=== PATIENT | male | born 1955 | race Caucasian/White ===

== ENCOUNTER → 2016-11-23 | Outpatient (CLI) | payer MEDICARE ==
[~2016-11-23] MED LIST: AMOX-358 PO; ASP81TEC PO; ASPI-587 PO; HYDR-2890 PO; LISI10TA2 PO; LOSA50TA6 PO; METO-272 PO; MTP25TSR PO; MULT-1029 PO; PNT40TEC PO; ROSU20TA14 PO; TRAM50TA2 PO
--- NOTE | 2016-11-23 10:35 | Diagnostic Imaging Report ---
Right shoulder at 10:11 AM. INDICATION: Fell, shoulder pain. There is no fracture, dislocation, or acute bony abnormality evident. There is mild degenerative disease of the glenohumeral joint and moderate degenerative disease of the acromioclavicular joint. The soft tissues are unremarkable. IMPRESSION: 1. There is no evidence for an acute bony abnormality. 2. If there is clinical concern regarding an injury to the rotator cuff or labrum, then MRI would be recommended for additional study. Dictated by: Dictated on workstation # [id number]
== END ==
LOC: RAD 09:46
PROVIDERS: ATTEND Family Medicine
DX: S49.91XA Unspecified injury of right shoulder and upper arm, initial encounter (principal); W19.XXXA Unspecified fall, initial encounter; Y99.8 Other external cause status
CPT/HCPCS: 73030

== ENCOUNTER 2017-11-11 11:02 | Day surgery (SDC) | payer MEDICARE ==
[~2017-11-11] VITALS: Ht 175.3 cm; Wt 100.4 kg
[2017-11-11] VITALS (15 sets, daily range): BP systolic 109–147; BP diastolic 60–89
[2017-11-11] MEDS ORDERED: NITROGLYCERIN 0.4 MG SL TABS BTL 25'S SL PRN ×2 (11:15→14:15)
[2017-11-11] MEDS ORDERED: NITROGLYCERIN 0.4 MG SL TABS BTL 25'S SL ONE (11:15)
[2017-11-11 11:20] LABS: BASOPHILS % (AUTO) 0 % (0-10); EOSINOPHILS # (AUTO) 0.1 10^3/uL (0.0-0.3); EOSINOPHILS % (AUTO) 1 % (0-10); HEMATOCRIT 41 % (40-54); HEMOGLOBIN 14.1 G/DL (13.3-17.7); LYMPHOCYTES # (AUTO) 3.2 X 10^3 (1.0-4.0); LYMPHOCYTES % (AUTO) 39 % (12-44); MEAN CORPUSCULAR HEMOGLOBIN 29 PG (25-34); MEAN CORPUSCULAR HGB CONC 34 G/DL (32-36); MEAN CORPUSCULAR VOLUME 85 FL (80-99); MEAN PLATELET VOLUME 9.5 FL (7.4-10.4); MONOCYTES # (AUTO) 0.6 X 10^3 (0.0-1.0); MONOCYTES % (AUTO) 7 % (0-12); NEUTROPHILS # (AUTO) 4.5 X 10^3 (1.8-7.8); NEUTROPHILS % (AUTO) 54 % (42-75); PLATELET COUNT 295 10^3/uL (130-400); RED BLOOD COUNT 4.85 10^6/uL (4.35-5.85); RED CELL DISTRIBUTION WIDTH 14.6 % (10.0-14.5); WHITE BLOOD COUNT 8.4 10^3/uL (4.3-11.0)
[2017-11-11 11:32] LABS: INR 1.1 (0.8-1.4); PROTHROMBIN TIME PATIENT 13.7 SEC (12.2-14.7)
--- NOTE | 2017-11-11 11:37 | Diagnostic Imaging Report ---
Indication: Chest pain. Frontal chest obtained at 1122 hrs. a.m. Heart and mediastinal silhouette are normal in appearance. The lungs are clear. There is no pneumothorax or pleural fluid. Impression: Negative chest. No change from 05/27/2015. Dictated by: Dictated on workstation # [id number]
[2017-11-11 11:38] LABS: ALANINE AMINOTRANSFERASE 39 U/L (0-55); ALBUMIN 4.5 GM/DL (3.2-4.5); ALKALINE PHOSPHATASE 77 U/L (40-136); BILIRUBIN,TOTAL 0.3 MG/DL (0.1-1.0); BUN/CREATININE RATIO 18; CALCIUM 10.4 MG/DL (8.5-10.1); CARBON DIOXIDE 25 MMOL/L (21-32); CHLORIDE 107 MMOL/L (98-107); CREATININE SERUM 0.92 MG/DL (0.60-1.30); GFR ESTIMATED > 60; GLUCOSE 123 MG/DL (70-105); MAGNESIUM 1.8 MG/DL (1.8-2.4); POTASSIUM 3.9 MMOL/L (3.6-5.0); SODIUM 142 MMOL/L (135-145); TOTAL PROTEIN 7.5 GM/DL (6.4-8.2)
[2017-11-11] MEDS ORDERED: AMLO5TAB2 PO (11:42)
[2017-11-11] MEDS ORDERED: CLOP75TA69 PO (11:42)
[2017-11-11 11:44] LABS: MYOGLOBIN SERUM 100.2 NG/ML (10.0-92.0)
--- NOTE | 2017-11-11 12:48 | ED Chest Pain ---
General Chief Complaint: Chest Pain Stated Complaint: CHEST PAIN Nursing Triage Note: PT CP OF CHEST PAIN Nursing Sepsis Screen: No Definite Risk Source: patient, old records Exam Limitations: no limitations History of Present Illness Date Seen by Provider: Nov 11, 2017 Time Seen by Provider: 11:10 Initial Comments This 62-year-old gentleman with known history of coronary artery disease and stent presents to the emergency room with intermittent chest pain 1 week. He initially thought it was of GI origin and took Tums and Pepto-Bismol. This seemed to work initially but it is no longer effective in treating the pain. Today he notes his pain is worse with activity and better with rest. He describes it as a tightness. He has a history of both pain from GI origin and from cardiac origin. He states this pain feels more like pain from his prior episodes of angina. He reports some dizziness and shortness of air associated with the chest pain today as well. He had a cardiac catheterization at this facility in 2013 demonstrating patent stent and no obstructive disease. His primary media planner is Dr. Yun in [place]. His primary care providers Dr. Givens. He describes his pain as a tightness in the central lower chest radiating to the left chest and left shoulder. Allergies and Home Medications Allergies Coded Allergies: No Known Drug Allergies (Unverified , 08/05/13) Home Medications Amlodipine Besylate 5 Mg Tablet, 5 MG PO DAILY, (Reported) Aspirin 81 Mg Tabec, 325 MG PO DAILY, (Reported) Clopidogrel Bisulfate 75 Mg Tablet, 75 MG PO DAILY, (Reported) Losartan Potassium 50 Mg Tablet, 50 MG PO DAILY, (Reported) Metoprolol Succinate 50 Mg Tab.sr.24h, 50 MG PO DAILY, (Reported) Mu-Vits-Min Th/Lycopene/Lutein 1 Each Tablet, 1 TAB PO DAILY, (Reported) Tramadol Hcl 50 Mg Tablet, 50 MG PO NEEDED, (Reported) Patient Home Medication List Home Medication List Reviewed: Yes Review of Systems Constitutional: no symptoms reported EENTM: No Symptoms Reported Respiratory: See HPI Cardiovascular: See HPI Gastrointestinal: No Symptoms Reported Genitourinary: No Symptoms Reported Musculoskeletal: no symptoms reported Skin: no symptoms reported Psychiatric/Neurological: No Symptoms Reported Endocrine: No Symptoms Reported Hematologic/Lymphatic: No Symptoms Reported Past Zceiayd-Ffgiaz-Wuczre Hx Past Med/Social Hx: Reviewed and Corrections made Patient Social History Alcohol Use: Occasionally Uses Recreational Drug Use: No Smoking Status: Former Smoker Recent Foreign Travel: No Contact w/Someone Who Travel: No Recent Infectious Disease Expo: No Recent Hopitalizations: No Physical Abuse: No Sexual Abuse: No Immunizations Up To Date Tetanus Booster (TDap): Less than 5yrs Date of Pneumonia Vaccine: Jul 24, 2013 Date of Influenza Vaccine: Mar 04, 2013 Seasonal Allergies Seasonal Allergies: No Past Medical History Surgeries: Yes (BACK SURGERY, X2 HEART STENTS) Coronary Stent Respiratory: No Cardiac: Yes Coronary Artery Disease, Hypertension Neurological: No Reproductive Disorders: No Gastrointestinal: No Musculoskeletal: Yes Back Injury, Chronic Back Pain Endocrine: No Cancer: No Psychosocial: No Nursing Suicide Risk Score: 0 Blood Disorders: No Family Medical History Reviewed Nursing Family Hx Cancer 19 MOTHER G8 SISTER Family history: Cardiovascular disease 19 FATHER G8 SISTER Physical Exam Vital Signs Vital Signs - First Documented 11/11/17 11:02 Temp 97.9 Pulse 87 Resp 18 B/P (MAP) 159/101 (120) Pulse Ox 97 Capillary Refill : Less Than 3 Seconds General Appearance: No Apparent Distress, WD/WN HEENT: PERRL/EOMI, Normal ENT Inspection Neck: Normal Inspection; No Carotid Bruit Respiratory: Chest Non Tender, Lungs Clear, Normal Breath Sounds, No Accessory Muscle Use, No Respiratory Distress Cardiovascular: Regular Rate, Rhythm, No Edema, No Murmur Gastrointestinal: Normal Bowel Sounds, Non Tender, Soft Extremity: Normal Capillary Refill, Normal Inspection, Non Tender, No Calf Tenderness, No Pedal Edema, Other (negative Paul) Neurologic/Psychiatric: Alert, Oriented x3, No Motor/Sensory Deficits, Normal Mood/Affect, international controller II-XII Norm as Tested Skin: Normal Color, Warm/Dry Progress/Results/Core Measures Results/Orders Lab Results Laboratory Tests Test 11/11/17 11:05 Range/Units White Blood Count 8.4 4.3-11.0 10^3/uL Red Blood Count 4.85 4.35-5.85 10^6/uL Hemoglobin 14.1 13.3-17.7 G/DL Hematocrit 41 40-54 % Mean Corpuscular Volume 85 80-99 FL Mean Corpuscular Hemoglobin 29 25-34 PG Mean Corpuscular Hemoglobin Concent 34 32-36 G/DL Red Cell Distribution Width 14.6 H 10.0-14.5 % Platelet Count 295 130-400 10^3/uL Mean Platelet Volume 9.5 7.4-10.4 FL Neutrophils (%) (Auto) 54 42-75 % Lymphocytes (%) (Auto) 39 12-44 % Monocytes (%) (Auto) 7 0-12 % Eosinophils (%) (Auto) 1 0-10 % Basophils (%) (Auto) 0 0-10 % Neutrophils # (Auto) 4.5 1.8-7.8 X 10^3 Lymphocytes # (Auto) 3.2 1.0-4.0 X 10^3 Monocytes # (Auto) 0.6 0.0-1.0 X 10^3 Eosinophils # (Auto) 0.1 0.0-0.3 10^3/uL Basophils # (Auto) 0.0 0.0-0.1 10^3/uL Prothrombin Time 13.7 12.2-14.7 SEC INR Comment 1.1 0.8-1.4 Activated Partial Thromboplast Time 29 24-35 SEC Sodium Level 142 135-145 MMOL/L Potassium Level 3.9 3.6-5.0 MMOL/L Chloride Level 107 98-107 MMOL/L Carbon Dioxide Level 25 21-32 MMOL/L Anion Gap 10 5-14 MMOL/L Blood Urea Nitrogen 17 7-18 MG/DL Creatinine 0.92 0.60-1.30 MG/DL Estimat Glomerular Filtration Rate > 60 BUN/Creatinine Ratio 18 Glucose Level 123 H 70-105 MG/DL Calcium Level 10.4 H 8.5-10.1 MG/DL Magnesium Level 1.8 1.8-2.4 MG/DL Total Bilirubin 0.3 0.1-1.0 MG/DL Aspartate Amino Transf (AST/SGOT) 25 5-34 U/L Alanine Aminotransferase (ALT/SGPT) 39 0-55 U/L Alkaline Phosphatase 77 40-136 U/L Myoglobin 100.2 H 10.0-92.0 NG/ML Troponin I < 0.30 <0.30 NG/ML Total Protein 7.5 6.4-8.2 GM/DL Albumin 4.5 3.2-4.5 GM/DL My Orders Orders - OSVALDO ARCSO MD Nitroglycerin 0.4 Mg Btl 25's (Nitrostat (11/11/17 11:15) Nitroglycerin 0.4 Mg Btl 25's (Nitrostat (11/11/17 11:15) Medications Given in ED Current Medications Medications Dose Ordered Sig/Rickey Route Start Time Stop Time Status Last Admin Dose Admin Nitroglycerin 0.4 mg UD PRN SL 11/11/17 11:15 11/11/17 11:15 0.4 MG Vital Signs/I&O 11/11/17 11:02 Temp 97.9 Pulse 87 Resp 18 B/P (MAP) 159/101 (120) Pulse Ox 97 Blood Pressure Mean: 120 Progress Progress Note : Progress Note Patient took aspirin at home. Nitroglycerin was administered in the emergency room which completely resolved his chest pain. He was pain-free at the time of admission. Case was discussed with Dr. Urrutia who agrees with admission for further cardiac rule out. Patient was admitted to Dr. Givens. Initial ECG Impression Date: Nov 11, 2017 Initial ECG Impression Time: 11:05 Initial ECG Rate: 86 Initial ECG Rhythm: Normal Sinus Initial ECG Intervals: Normal Initial ECG Impression: Normal Comment Normal sinus rhythm with no ST elevation or depression. No abnormal intervals or axis deviation. Diagnostic Imaging Diagonstic Imaging: Xray Plain Films/CT/US/NM/MRI: chest Comments NAME: RHEA FOOTE Jose [facility] REC#: [id number] PT STATUS: REG ER : 1955 PHYSICIAN: ALFIE BAH APRN ADMIT DATE: 11/11/17/ER Signed Date of Exam: 11/11/17 CHEST 1 VIEW, AP/PA ONLY Indication: Chest pain. Frontal chest obtained at 1122 hrs. a.m. Heart and mediastinal silhouette are normal in appearance. The lungs are clear. There is no pneumothorax or pleural fluid. Impression: Negative chest. No change from 05/27/2015. Dictated by: Dictated on workstation # [id number] Dict: 11/11/17 1132 Trans: 11/11/17 1243 Interpreted by: ANAYELI MCINTYRE MD Electronically signed by: ANAYELI MCINTYRE MD 11/11/17 1243 Departure Communication (Admissions) Time/Spoke to Admitting Phy: 12:36 Dr. Givens Time/Spoke to Consulting Phy: 12:30 Dr. Urrutia Impression Primary Impression: Chest pain Additional Impression: Coronary artery disease Qualified Codes: I25.10 - Atherosclerotic heart disease of [place] coronary artery without angina pectoris Disposition: ADMITTED INPATIENT Condition: Improved Admissions Decision to Admit Reason: Admit from ER (General) Decision to Admit/Date: Nov 11, 2017 Time/Decision to Admit Time: 12:30 Departure-Patient Inst. Referrals: DEBBIE GIVENS DO (PCP/Family) Primary Care Physician OSVALDO ARCOS MD Nov 11, 2017 12:48
--- OUTSIDE RECORDS SUMMARY | 2017-11-11 13:02 | XMS REPORT | Clinical Summary ---
Author Author [facility] Organization [facility] Address Unknown Phone Unavailable Care Team Providers Care Photographic Laboratory Technician Name Role Phone Self, Referral PCP Unavailable Source Comments Some departments are not documenting in the electronic medical record. If you do not see the information that you expected, contact Release of Information in the Health Information Management department at [phone] for further assistance in locating additional records.[facility] Allergies Not on File Current Medications Not on file Active Problems Not on file Social History Tobacco Use Types Packs/Day Years Used Date Never Assessed Sex Assigned at Date Recorded Not on file Last Filed Vital Signs Not on file Plan of Treatment Health Maintenance Due Date Last Done Comments HEPATITIS C SCREENING 1955 PHYSICAL (COMPREHENSIVE) 11/08/1963 EXAM PERTUSSIS VACCINE 11/08/1967 HIV SCREENING 11/08/1971 TETANUS VACCINE 1973 COLORECTAL CANCER 2006 SCREENING SHINGLES VACCINE 2016 INFLUENZA VACCINE 03/10/2018 Results Not on filefrom Last 3 Months
[2017-11-11] MEDS ORDERED: CATHETER FLUSH 10 ML SYR IV PRN (14:00)
[2017-11-11] MEDS: CATHETER FLUSH 10 ML SYR IV SCH ×2 (14:13→20:42)
[2017-11-11] MEDS ORDERED: morphine INJ 4 MG/ML 1 ML (VIAL/SYRINGE) IV PRN (14:15)
--- NOTE | 2017-11-11 16:25 | Consultation-Cardiology ---
HPI-Cardiology Cardiology Consultation Date of Consultation 11/11/17 Date of Admission Time Seen by Provider: 16:17 Indication: chest pain HPI 62 years old gentleman with history of coronary artery disease, stents in 2002, hypertension. Was in his usual state of health until 2 weeks ago when he started having recurrent episodes of chest pain described it as dull in nature in the retrosternal area with pressure radiating to the left shoulder and arm worsening with exertion, over the past 48 hours he started having more frequent chest pain, expressed that walking 15 steps causing the chest pain. Came into the emergency room for evaluation, he is sitting comfortably at this time, denied any active pain, reporting improvement of his pain in the emergency room with sublingual nitroglycerin. He has been followed by Dr. Yun in [place]. Home Medications & Allergies Allergies: Coded Allergies: No Known Drug Allergies (Unverified , 08/05/13) Home Medication List Reviewed: Yes ZJW-Wolmqj-Unkeap Hx Patient Social History Marital Status: Employed/Student: employed Alcohol Use: Occasionally Uses Recreational Drug Use: No Smoking Status: Former Smoker Recent Foreign Travel: No Recent Infectious Disease Expo: No Recent Hopitalizations: No Immunizations Up To Date Tetanus Booster (TDap): Less than 5yrs Date of Pneumonia Vaccine: Jul 24, 2013 Date of Influenza Vaccine: Mar 04, 2013 Past Medical History Discussed below Family Medical History Family History: Cancer 19 MOTHER G8 SISTER Family history: Cardiovascular disease 19 FATHER G8 SISTER Constitutional: no symptoms reported, see HPI EENTM: see HPI, no symptoms reported Respiratory: see HPI; No cough; dyspnea on exertion; No hemoptysis, No orthopnea, No phlegm, No short of breath, No stridor, No wheezing, No other Cardiovascular: see HPI, chest pain; No edema, No Hx of Intervention, No palpitations, No syncope, No vascular heart diseas, No other Gastrointestinal: no symptoms reported, see HPI Genitourinary: no symptoms reported, see HPI Musculoskeletal: no symptoms reported, see HPI Skin: no symptoms reported, see HPI Psychiatric/Neurological: No Symptoms Reported, See HPI Reviewed Test Results Reviewed Test Results Lab Laboratory Tests Test 11/11/17 11:05 Range/Units White Blood Count 8.4 4.3-11.0 10^3/uL Red Blood Count 4.85 4.35-5.85 10^6/uL Hemoglobin 14.1 13.3-17.7 G/DL Hematocrit 41 40-54 % Mean Corpuscular Volume 85 80-99 FL Mean Corpuscular Hemoglobin 29 25-34 PG Mean Corpuscular Hemoglobin Concent 34 32-36 G/DL Red Cell Distribution Width 14.6 H 10.0-14.5 % Platelet Count 295 130-400 10^3/uL Mean Platelet Volume 9.5 7.4-10.4 FL Neutrophils (%) (Auto) 54 42-75 % Lymphocytes (%) (Auto) 39 12-44 % Monocytes (%) (Auto) 7 0-12 % Eosinophils (%) (Auto) 1 0-10 % Basophils (%) (Auto) 0 0-10 % Neutrophils # (Auto) 4.5 1.8-7.8 X 10^3 Lymphocytes # (Auto) 3.2 1.0-4.0 X 10^3 Monocytes # (Auto) 0.6 0.0-1.0 X 10^3 Eosinophils # (Auto) 0.1 0.0-0.3 10^3/uL Basophils # (Auto) 0.0 0.0-0.1 10^3/uL Prothrombin Time 13.7 12.2-14.7 SEC INR Comment 1.1 0.8-1.4 Activated Partial Thromboplast Time 29 24-35 SEC Sodium Level 142 135-145 MMOL/L Potassium Level 3.9 3.6-5.0 MMOL/L Chloride Level 107 98-107 MMOL/L Carbon Dioxide Level 25 21-32 MMOL/L Anion Gap 10 5-14 MMOL/L Blood Urea Nitrogen 17 7-18 MG/DL Creatinine 0.92 0.60-1.30 MG/DL Estimat Glomerular Filtration Rate > 60 BUN/Creatinine Ratio 18 Glucose Level 123 H 70-105 MG/DL Calcium Level 10.4 H 8.5-10.1 MG/DL Magnesium Level 1.8 1.8-2.4 MG/DL Total Bilirubin 0.3 0.1-1.0 MG/DL Aspartate Amino Transf (AST/SGOT) 25 5-34 U/L Alanine Aminotransferase (ALT/SGPT) 39 0-55 U/L Alkaline Phosphatase 77 40-136 U/L Myoglobin 100.2 H 10.0-92.0 NG/ML Troponin I < 0.30 <0.30 NG/ML Total Protein 7.5 6.4-8.2 GM/DL Albumin 4.5 3.2-4.5 GM/DL Physical Exam Vital Signs Vital Signs - First Documented 11/11/17 11/11/17 11:02 13:48 Temp 97.9 Pulse 87 Resp 18 B/P (MAP) 159/101 (120) Pulse Ox 97 O2 Delivery Room Air Capillary Refill : Less Than 3 Seconds General Appearance: No Apparent Distress, WD/WN Eyes: Bilateral Eye Normal Inspection, Bilateral Eye PERRL, Bilateral Eye EOMI HEENT: PERRL/EOMI, TMs Normal, Normal ENT Inspection, Pharynx Normal Neck: Full Range of Motion, Normal Inspection, Non Tender, Supple, Carotid Bruit Respiratory: Chest Non Tender, Lungs Clear, Normal Breath Sounds, No Accessory Muscle Use, No Respiratory Distress Cardiovascular: Regular Rate, Rhythm, No Edema, No Gallop, No JVD, No Murmur, Normal Peripheral Pulses Gastrointestinal: Normal Bowel Sounds, No Organomegaly, No Pulsatile Mass, Non Tender, Soft Back: Normal Inspection, No CVA Tenderness, No Vertebral Tenderness Extremity: Normal Capillary Refill, Normal Inspection, Normal Range of Motion, Non Tender, No Calf Tenderness, No Pedal Edema Neurologic/Psychiatric: Alert, Oriented x3, No Motor/Sensory Deficits, Normal Mood/Affect Skin: Normal Color, Warm/Dry Lymphatic: No Adenopathy A/P-Cardiology Admission Diagnosis Chest pain, accelerating angina Coronary artery disease Shortness of breath Hypertension Assessment/Plan Chest pain resembling accelerating angina, extensive cardiac history as described below. Discussed with him the management plan, his heart enzymes are negative at this time, EKG did not show any acute abnormality, I recommended stress test versus cardiac catheterization, I proceed with scheduling the patient for stress test for tomorrow morning, called back by the nurse expressing that the patient does not want to proceed with a stress test and prefer to do cardiac catheterization, he is still having significant symptoms with accelerating angina, I will proceed with the procedure Coronary artery disease, history of 2 stents in the LAD in 2002, has been followed by Dr. Yun in [place], had a cardiac catheterization done in [address] Wood which showed patent stents with mild coronary artery disease. Hypertension, restart home medications and monitor blood pressure Dyspnea on exertion with the chest pain. Probably secondary to angina. COPD/obstructive sleep apnea for which he uses C Pap machine. No history of hyperlipidemia, I will evaluate lipid profile. Clinical Quality Measures AMI/AHF: ASA po Prior to arrival: Yes (325MG AT DR FORDE ) PROSPER VENEGAS MD Nov 11, 2017 16:25
[2017-11-11] MEDS ORDERED: PANTOPRAZOLE 40 MG (PROTONIX) TAB PO NR (16:30)
[2017-11-11] MEDS ORDERED: PATIENT MAY USE OWN MEDS, ALL MC SCH (17:15)
[2017-11-11] MEDS ORDERED: NS IV 1000 ML 1,000 ML IV SCH ×2 (17:15→17:30)
--- NOTE | 2017-11-11 17:32 | Cardiac Procedure Note-CS/ASA ---
Pre-Procedure Note Pre-Op Procedure Note H&P Reviewed The H&P was reviewed, patient examined and no changes noted. Date H&P Reviewed: Nov 11, 2017 Time H&P Reviewed: 17:31 Conscious Sedation Pre-Proced Time Reviewed: 17:31 ASA Class: 3 Airway Mallampati Classification: (pilot station appropriate class) I. II. III, IV Lungs Heart ASA score ASA 1: a normal healthy patient ASA 2: a patient with a mild systemic disease (mid diabetes, controlled hypertension, obesity x ASA 3: a patient with a severe systemic disease that limits activity (angina , COPD, prior Myocardial infarction) ASA 4: a patient with an incapacitating disease that is a constant threat to life (CHF, renal failure) ASA 5: a moribund patient not expected to survive 24 hrs. (ruptured aneurysm) ASA 6: a declared brain patient whose organs are being harvested. For emergent operations, add the letter E after the classification Grade 3 Sedation Plan: Analgesia, Amnesia, Plan communicated to team members, Discussed options with patient/fam, Discussed risks with patient/fam Note The patient is an appropriate candidate to undergo the planned procedure, sedation, and anesthesia. The patient immediately re-assessed prior to indication. PROSPER VENEGAS MD Nov 11, 2017 17:32
[2017-11-11 17:33] LABS: CREATINE KINASE 230 U/L (30-200)
[2017-11-11] MEDS ORDERED: NS IV 1000 ML 0 ML ONE (18:01)
[2017-11-11] MEDS ORDERED: MIDAZOLAM 5 MG/5 ML (VERSED) VIAL ONE (18:01)
[2017-11-11] MEDS ORDERED: fentaNYL INJECTION 100 MCG/2 ML AMP ONE (18:01)
[2017-11-11] MEDS ORDERED: LIDOCAINE 1% INJ 20 ML 20 ML VIAL ONE (18:01)
[2017-11-11] MEDS ORDERED: HEParin (CATH LAB) 2,000 ML IV ONE (18:01)
[2017-11-11] MEDS ORDERED: HEParin 1000 UNIT/ML (10ML VIAL) FOR BOLUS ONE (18:45)
[2017-11-11] MEDS ORDERED: NITRO DRIP 25000 MCG/D5W 250 ML IV ONE (18:45)
[2017-11-11] MEDS ORDERED: ASPIRIN 81 MG CHEW (CHILDREN'S ASA) ONE (19:12)
[2017-11-11] MEDS ORDERED: CLOPIDOGREL 300 MG (PLAVIX) TABLET PO ONE (19:12)
[2017-11-11] MEDS ORDERED: PATIENT MAY USE OWN MEDS, ALL PO SCH (19:15)
--- NOTE | 2017-11-11 19:19 | Cardiac Cath Report ---
Cardiac Cath Report Physician (s)/Acute Specialist (s) Physician PROSPER VENEGAS MD Pre-Procedure Diagnosis Pre-Procedure Diagnosis: Unstable angina Post-Procedure Note Procedure Start Date: Nov 11, 2017 Name of Procedure: left heart catheterization, left ventriculogram Stent to the LAD Findings/Procedure Note PROCEDURE NOTE: After explaining the procedure to the patient, all pros and cons were explained , all questions were answered. The patient signed the consent and then he was placed on the cardiac catheterization laboratory. Groin was prepped SL fashion local anesthesia was used. Sheath placed in the right femoral artery. Hoang right and left catheter were used to access the coronary system. Pigtail was used to access the left ventricular cavity. Left ventriculogram was done Patient had severe in-stent restenosis in the proximal LAD with the lesion extending beyond the stent with 80 percent stenosis in the proximal LAD, FL guide was used, 6000 units of heparin were given then BMW wire was advanced through the LAD and parked distally, predilatation with 2.515 mm balloon and then deployment of drug-eluting stent outline 2.518 mm expanded to 2.7 mm distally and 2.72 mm proximally at the overlapping area with the old stent with excellent results with no residual stenosis. At the end of the procedure the sheath was removed. Closure device was used FINDINGS: Hemodynamics LV 116/19, end-diastolic pressure of 19 Aorta 111/64 mean of 51 ANATOMY: Left Main is free of obstructive disease Left Anterior Descending has proximal/ostial stent with severe in-stent restenosis and 80 percent stenosis beyond the stent, successful balloon angioplasty then stent deployment using Alpine 2.518 mm drug-eluting stent expanded to 2.7 mm distally and 2.72 mm at the overlapping area with excellent results, balloon antiplastic for the in-stent restenosis with excellent results. Left Circumflex is moderate in size with mild disease nonobstructive disease Right Coronory Artery has mild disease nonobstructive disease LV Gram is normal in size with normal contraction. Estimated ejection fraction 60 percent CONCLUSION: 1. Severe in-stent restenosis within the proximal/ostial LAD with disease extending beyond the stent with 80 percent stenosis, successful balloon angioplasty then deployment of drug-eluting stent Alpine 2.518 mm expanded to 2.7 mm distally and 2.72 mm proximally at the overlap area with excellent results with no residual stenosis 2. Mild disease in the left circumflex artery and right coronary artery, nonobstructive disease 3. Normal left ventricular size and systolic function with estimated ejection fraction 60 percent DISCUSSION AND RECOMMENDATION: I will continue maximizing medical therapy and monitoring the patient Anesthesia Type: Conscious Sedation Estimated blood loss (mL): 10 ml Contrast Amount: 120 ml Total Radiation Dose: 1296 mGy Post-Procedure Diagnosis Post-operative diagnosis: Unstable angina Coronary artery disease Hypertension Hyperlipidemia PROSPER VENEGAS MD Nov 11, 2017 19:19
[2017-11-11] MEDS ORDERED: CALCIUM CARBONATE 500 MG (TUMS) TAB.CHEW PO ONE (20:30)
[2017-11-11] MEDS: NS IV 1000 ML 1,000 ML IV SCH (20:41)
[2017-11-12] VITALS: BP 124/65
[2017-11-12 04:00] VITALS: BP 136/78
[2017-11-12 04:21] LABS: HEMOGLOBIN 13.1 G/DL (13.3-17.7); MEAN PLATELET VOLUME 9.7 FL (7.4-10.4); RED BLOOD COUNT 4.62 10^6/uL (4.35-5.85); RED CELL DISTRIBUTION WIDTH 14.8 % (10.0-14.5); WHITE BLOOD COUNT 7.5 10^3/uL (4.3-11.0)
[2017-11-12 04:40] LABS: BUN/CREATININE RATIO 18; CALCIUM 8.7 MG/DL (8.5-10.1); CARBON DIOXIDE 21 MMOL/L (21-32); CHLORIDE 110 MMOL/L (98-107); CHOLESTEROL 153 MG/DL (< 200); CREATININE SERUM 0.74 MG/DL (0.60-1.30); GFR ESTIMATED > 60; GLUCOSE 84 MG/DL (70-105); HDL CHOLESTEROL 38 MG/DL (40-60); SODIUM 142 MMOL/L (135-145); TRIGLYCERIDES 171 MG/DL (<150); VLDL CHOLESTEROL 34 MG/DL (5-40)
[2017-11-12] MEDS: NS IV 1000 ML 1,000 ML IV SCH (04:59)
[2017-11-12] MEDS: CATHETER FLUSH 10 ML SYR IV SCH (05:45)
[2017-11-12] MEDS ORDERED: PANTOPRAZOLE 40 MG (PROTONIX) TAB PO SCH ×2 (07:00)
--- NOTE | 2017-11-12 07:22 | History & Physicial ---
History of Present Illness History of Present Illness Reason for visit/HPI Patient came to the office yesterday complaining of chest pain with exertion going down the left arm. Onset 2 days ago. 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 Get Chest pain. Patient sent out to the emergency room and evaluated and admitted to ICU. Family history Sr. heart attack and cancer, mother cancer and father of old age. Surgeries stent and back Date of Admission Nov 11, 2017 at 12:39 Time Seen by Provider: 07:15 I consulted on this patient on 11/12/17 07:17 Attending Physician Alfred Givens DO Admitting Physician Alfred Givens DO Consult Allergies and Home Medications Allergies Coded Allergies: No Known Drug Allergies (Unverified , 08/05/13) Home Medications Amlodipine Besylate 5 Mg Tablet, 5 MG PO DAILY, (Reported) Aspirin 81 Mg Tabec, 324 MG PO DAILY, (Reported) 4 Akhil ASA pills daily Clopidogrel Bisulfate 75 Mg Tablet, 75 MG PO DAILY, (Reported) Losartan Potassium 50 Mg Tablet, 50 MG PO DAILY, (Reported) Metoprolol Succinate 50 Mg Tab.sr.24h, 50 MG PO DAILY, (Reported) Mu-Vits-Min Th/Lycopene/Lutein 1 Each Tablet, 1 TAB PO DAILY, (Reported) Tramadol Hcl 50 Mg Tablet, 50 MG PO TID PRN for PAIN-MILD TO MODERATE, (Reported ) Patient Home Medication List Home Medication List Reviewed: Yes Past Desloxj-Mzpdvt-Usuceq Hx Patient Social History Marrital Status: Employed/Student: employed Alcohol Use: Rarely Uses Number of Drinks Today: 0 Recreational Drug Use: No Smoking Status: Former Smoker Former Smoker, Quit: Nov 12, 2003 Physical Abuse Screen: No Sexual Abuse: No Recent Foreign Travel: No Contact w/other who traveled: No Recent Hopitalizations: No Recent Infectious Disease Expo: No Immunizations Up To Date Tetanus Booster (TDap): Less than 5yrs Date of Pneumonia Vaccine: Jul 24, 2013 Date of Influenza Vaccine: Mar 04, 2013 Seasonal Allergies Seasonal Allergies: No Surgeries Yes (BACK SURGERY, X2 HEART STENTS) Coronary Stent Respiratory No Cardiovascular Yes Coronary Artery Disease, Hypertension Neurological No Reproductive System Hx Reproductive Disorders: No Genitourinary No Gastrointestinal No Musculoskeletal Yes Back Injury, Chronic Back Pain Endocrine History of Endocrine Disorders: No HEENT History of HEENT Disorders: No Cancer No Psychosocial History of Psychiatric Problem: No Integumentary History of Skin or Integumenta: No Blood Transfusions History of Blood Disorders: No Family Medical History Family Hx: Cancer 19 MOTHER G8 SISTER Family history: Cardiovascular disease 19 FATHER G8 SISTER Constitutional: no symptoms reported EENTM: no symptoms reported Respiratory: no symptoms reported Cardiovascular: chest pain, other (Unstable angina) Gastrointestinal: no symptoms reported Genitourinary: no symptoms reported Physical Exam Vital Signs Vital Signs - First Documented 11/11/17 11/11/17 11:02 13:48 Temp 97.9 Pulse 87 Resp 18 B/P (MAP) 159/101 (120) Pulse Ox 97 O2 Delivery Room Air Capillary Refill : Less Than 3 Seconds General Appearance: No Apparent Distress, WD/WN Eyes: Bilateral Eye Normal Inspection HEENT: Normal ENT Inspection Neck: Full Range of Motion, Normal Inspection Respiratory: Chest Non Tender, Lungs Clear, Normal Breath Sounds, No Accessory Muscle Use, No Respiratory Distress Cardiovascular: Regular Rate, Rhythm, No Murmur Gastrointestinal: Non Tender, Soft Assessment/Plan Assessment and Plan Chest pain. Unstable angina. Coronary artery disease. Hypertension. Dyspnea on exertion. COPD Admission Diagnosis Admission Status: Observation Clinical Quality Measures AMI/AHF: ASA po Prior to arrival: Yes (325MG AT DR FORDE ) DVT/VTE Risk/Contraindication: Risk Factor Score Per Nursin RFS Level Per Nursing on Admit: 2=Moderate ALFRED GIVENS DO Nov 12, 2017 07:22
[2017-11-12] MEDS ORDERED: RANI150T46 PO (07:31)
--- NOTE | 2017-11-12 07:32 | Discharge Inst-Post CATH ---
Discharge Inst-CATH Post Cardiac Cath D/C Inst Follow Up/Plan Appointment with Dr. Britton in one week Appointment with Dr. Urrutia's office in 2 weeks CARDIAC CATH DISCHARGE INSTRUCTIONS *Hold Metformin for 48 hours post heart cath. ACTIVITY * Go Home directly and rest. * Limit activity of the leg (or wrist if it was used) for 7 days including aerobics, swimming, jogging, bicycling, etc. * Restrict stair-climbing for 7 days if possible, if not, climb up with your non -cath leg, then bring together on the same step. * Avoid lifting, pushing, pulling or excessive movement of the affected extremity for 7 days. * Customary sexual activity may be resumed after 2 days-use caution not to use a position that strains or causes pain to the affected extremity. * No driving for 24 hours. * NO SMOKING. * Avoid straining for bowel movements for 7 days. * Gentle walking on level ground is allowed. * Returning to work will depend on the type of procedure and the results. Your doctor will discuss this with you. CALL YOUR DOCTOR FOR ANY OF THE FOLLOWING: *If bleeding from the puncture site occurs- Apply gentle pressure to site with clean cloth and call your doctor or EMS. * If a knot or lump forms under the skin, increases in size, or causes pain. * If bruising appears to be worsening or moving further down your leg instead of disappearing. * Temperature above 101 F. CARE OF YOUR GROIN INCISION; * Bruising or purple discoloration of the skin near the puncture site is common. * You may shower only, no bathtub bathing for 5 days. Be careful to avoid slipping as your leg may feel stiff. * If a closure device was used on your femoral artery, please see the attached guide regarding care of the device and your leg. * REMOVE the dressing from your groin the next day after your procedure in the shower. CARE OF YOUR WRIST INCISION; * Bruising or purple discoloration of the skin near the puncture site is common. * You may shower. * DO NOT submerge wrist. * Remove dressing in 24 hours. PROSPER URRUTIA MD Nov 12, 2017 07:32
--- NOTE | 2017-11-12 07:34 | Cardiology Progress Note ---
Subjective Date Seen by Provider: Nov 12, 2017 Time Seen by Provider: 07:32 Subjective/Events-last exam Patient is laying down in bed, groin is healed well, denied any chest pain Review of Systems General: No Chills, No Night Sweats, No Fatigue, No Malaise, No Appetite, No Other HEENT: No Head Aches, No Visual Changes, No Eye Pain, No Ear Pain, No Dysphasia , No Sinus Congestion, No Post Nasal Drip, No Sore Throat, No Other Pulmonary: No Dyspnea, No Cough, No Pleuritic Chest Pain, No Other Cardiovascular: No: Chest Pain, Palpitations, Orthopnea, Paroxysmal Noc. Dyspnea, Edema, Lt Headedness, Other Objective-Cardiology Exam Last Set of Vital Signs Vital Signs Capillary Refill : Less Than 3 Seconds I&O Intake and Output 11/12/17 00:00 Intake Total 1250 ml Balance 1250 ml Intake Oral 250 ml IV Total 1000 ml # Voids 1 Daily Weight Change Unsure General: Alert, Oriented X3, Cooperative HEENT: Atraumatic, PERRLA Neck: Supple, No JVD, No Thyromegaly Lungs: Clear to Auscultation, Normal Air Movement Heart: Regular Rate, Normal S1, Normal S2, No Murmurs Abdomen: Normal Bowel Sounds, Soft, No Tenderness, No Hepatosplenomegaly, No Masses Extremities: No Clubbing, No Cyanosis, No Edema, Normal Pulses, No Tenderness/ Swelling Skin: No Rashes, No Breakdown, No Significant Lesion Neuro: Normal Gait, Normal Speech, Strength at 5/5 X4 Ext, Normal Tone, Sensation Intact Psych/Mental Status: Mental Status NL, Mood NL Results Lab Laboratory Tests 11/11/17 11:05 11/12/17 03:10 A/P-Cardiology Admission Diagnosis Chest pain, accelerating angina Coronary artery disease Shortness of breath Hypertension Assessment/Plan Chest pain resembling accelerating angina, cardiac catheterization showed severe proximal LAD disease, stent to the LAD Coronary artery disease, history of 2 stents in the LAD in 2002, has been followed by Dr. Yun in [place], had a cardiac catheterization done in [address] Wood which showed patent stents with mild coronary artery disease. Repeat cardiac catheterization was done last night: 1. Severe in-stent restenosis within the proximal/ostial LAD with disease extending beyond the stent with 80 percent stenosis, successful balloon angioplasty then deployment of drug-eluting stent Alpine 2.518 mm expanded to 2.7 mm distally and 2.72 mm proximally at the overlap area with excellent results with no residual stenosis 2. Mild disease in the left circumflex artery and right coronary artery, nonobstructive disease 3. Normal left ventricular size and systolic function with estimated ejection fraction 60 percent Hypertension, good control, continue current medication Dyspnea on exertion with the chest pain. Probably secondary to angina. COPD/obstructive sleep apnea for which he uses C Pap machine. No history of hyperlipidemia, lipid profile showed good control Okay for discharge from cardiology standpoint Clinical Quality Measures AMI/AHF: ASA po Prior to arrival: Yes (325MG AT DR FORDE ) DVT/VTE Risk/Contraindication: Risk Factor Score Per Nursin RFS Level Per Nursing on Admit: 2=Moderate PROSPER VENEGAS MD Nov 12, 2017 07:34
[2017-11-12 07:53] VITALS: BP 148/80
[2017-11-12] MEDS ORDERED: amLODIPine 5 MG (NORVASC) TAB PO SCH ×2 (09:00)
[2017-11-12] MEDS ORDERED: CLOPIDOGREL 75 MG (PLAVIX) TABLET PO SCH ×4 (09:00)
[2017-11-12] MEDS ORDERED: NON-FORMULARY MEDICATION 1 EA EA (Amlodipine Besylate 5 MG) PO SCH (09:00)
[2017-11-12] MEDS ORDERED: ASPIRIN E.C. 81 MG (ECOTRIN) TAB PO SCH ×2 (09:00)
[2017-11-12] MEDS ORDERED: LOSARTAN 50 MG (COZAAR) TAB PO SCH ×2 (09:00)
--- NOTE | 2017-11-13 07:28 | Clinic Account Progress/Dx ---
Clinic Account Progress/Dx DIAGNOSIS: Time Seen by Provider: 07:15 Chest pain. Unstable angina. Coronary artery disease. Short of breath. Hypertension. COPD. Severe in-stent restenosis with a proximal LAD DEBBIE GIVENS DO Nov 13, 2017 07:28
--- OUTSIDE RECORDS SUMMARY | 2017-11-18 09:18 | XMS REPORT | Clinical Summary ---
Author Author [facility] Organization [facility] Address Unknown Phone Unavailable Care Team Providers Care Product Development Specialist Name Role Phone Self, Referral PCP Unavailable Source Comments Some departments are not documenting in the electronic medical record. If you do not see the information that you expected, contact Release of Information in the Health Information Management department at [phone] for further assistance in locating additional records.[facility] Allergies Not on File Current Medications [...]
== END 2017-11-12 08:50 | disposition home or self-care (01) ==
LOC: EDUNIT# 11:02 → ER 11:04 → UNDOADMOB 12:39 → ICU 12:39 → ER 13:19 → CATH 13:40 → ICU 13:40 → UNDODISOB 11-12 08:50 → CATH 11-12 08:50
PROVIDERS: ATTEND Family Medicine
DX: I25.119 Atherosclerotic heart disease of native coronary artery with unspecified angina pectoris (principal); R07.9 Chest pain, unspecified; J44.9 Chronic obstructive pulmonary disease, unspecified; E78.5 Hyperlipidemia, unspecified; I10 Essential (primary) hypertension; G47.33 Obstructive sleep apnea (adult) (pediatric); Z87.891 Personal history of nicotine dependence
CPT/HCPCS: 36415; 71045; 80048; 80053; 80061; 82550; 83735; 83874; 84484; 85025; 85027; 85347; 85610; 85730; 93005; 93041; 93458

== ENCOUNTER → 2020-10-14 | Outpatient (CLI) | payer MEDICARE ==
[~2020-10-14] MED LIST changes: +AMLO-250 PO; +CATHETER FLUSH 10 ML SYR IV PRN; +CLOP75TA69 PO; +HOLD METFORMIN - RECEIVED CONTRAST 20 ML VIAL IV SCH; +IOHEXOL 350 MG/ML 100 ML (OMNIPAQUE 350) VIAL IV ONE; +NS 100 ML (IVPB) BAG IV ONE; +RANI-613 PO
[2020-10-14 08:38] LABS: ALBUMIN 4.6 GM/DL (3.2-4.5); CHLORIDE 105 MMOL/L (98-107); POTASSIUM 4.5 MMOL/L (3.6-5.0); SODIUM 140 MMOL/L (135-145)
[2020-10-14 08:39] LABS: CALCIUM 9.5 MG/DL (8.5-10.1)
[2020-10-14 08:40] LABS: TRIGLYCERIDES 59 MG/DL (<150); VLDL CHOLESTEROL 12 MG/DL (5-40)
[2020-10-14 08:41] LABS: GLUCOSE 102 MG/DL (70-105); TOTAL PROTEIN 7.4 GM/DL (6.4-8.2)
[2020-10-14 08:42] LABS: BILIRUBIN,TOTAL 0.5 MG/DL (0.1-1.0); CARBON DIOXIDE 28 MMOL/L (21-32)
[2020-10-14 08:44] LABS: ALKALINE PHOSPHATASE 87 U/L (40-136); CREATININE SERUM 1.02 MG/DL (0.60-1.30); GFR ESTIMATED > 60
[2020-10-14 08:45] LABS: CHOLESTEROL 122 MG/DL (< 200)
[2020-10-14 08:46] LABS: BUN/CREATININE RATIO 10; HDL CHOLESTEROL 45 MG/DL (40-60)
[2020-10-14 08:47] LABS: ALANINE AMINOTRANSFERASE 27 U/L (0-55)
--- NOTE | 2020-10-14 10:07 | Diagnostic Imaging Report ---
PROCEDURE: CT angiography of the head and CT angiography of the neck with and without contrast. TECHNIQUE: Contiguous noncontrast images were obtained from the skull base through the vertex. After intravenous contrast administration, helical CT angiography of the neck was performed. Source data was reformatted into 3D MIP projections. Delayed post contrast acquisition was also obtained. Auto Exposure Controls were utilized during the CT exam to meet ALARA standards for radiation dose reduction. INDICATION: Followup stenosis of the left ICA. Comparison: MRA of the head on 03/10/2014. FINDINGS: CTA Neck: The exam did not include the aortic arch or origin of the great vessels. The common carotid arteries and internal carotid arteries demonstrate a normal course. There is atherosclerotic plaque in the bilateral carotid bulbs and proximal internal carotid arteries, resulting in 80 and 90% stenosis in the proximal left ICA and less than 50% stenosis in the proximal right ICA. The remainder of the left ICA has a diminutive appearance up to the skull base. No evidence of dissection is seen. The external carotid arteries are patent and unremarkable. The right vertebral artery is dominant. The origin of the right vertebral artery is seen and is unremarkable. The origin of the left vertebral artery is seen and is unremarkable. There is no focal stenosis seen within the neck. There is no dissection. The vertebral arteries are well visualized to up to the level of the basilar artery. The osseous structures of the cervical spine are unremarkable. A small amount of centrilobular emphysema is seen in the lung apices. CTA brain: There is calcified atherosclerotic plaque in the intracranial portions of the bilateral ICAs. The left internal carotid artery remains diminutive with scattered areas of additional stenosis in the intracranial portion. No stenosis is seen in the intracranial portion of the right ICA. The left middle cerebral artery has a more diminutive appearance relative to the right without focal stenosis. No evidence of large vessel occlusion in the [place]. The bilateral ABELARDO have a normal appearance. A prominent anterior communicating artery is noted. The bilateral MOUNTER SOUSAPHONES are unremarkable without stenosis. No evidence of aneurysm in the [place]. In the posterior circulation, both of the vertebral arteries demonstrate normal opacification. The vertebral arteries are codominant. Both the right and left PICA arteries are identified. The basilar artery is normal in course and caliber. The terminal branch vessels including the superior cerebellar arteries unremarkable. CT head: No large acute territorial ischemia, mass, or hemorrhage. No midline shift or mass effect. The ventricles, cortical sulci, and basilar cisterns are patent and unremarkable. The calvarium is intact. The visualized paranasal sinuses are clear. IMPRESSION: 1. Stenosis involving the proximal left ICA of 80-90% with continued diminutive appearance up to the left ICA terminus. Additional areas of stenosis are visualized in the intracranial portions of the left ICA. Overall this appearance is stable compared to the prior exam from 2013. 2. Diminutive appearance of the left MCA relative to the right without focal stenosis. No evidence of large vessel occlusion in the [place]. A prominent anterior communicating artery is noted which likely provides supplemental flow to the left ABELARDO and MCA. 3. No evidence of stenosis or dissection in the bilateral vertebral arteries or basilar artery. 4. No large acute territorial ischemia, mass, or hemorrhage. Dictated by: Dictated on workstation # [id number]
== END ==
LOC: RAD 08:11
PROVIDERS: ATTEND Physician Assistant
DX: I65.22 Occlusion and stenosis of left carotid artery (principal); E78.2 Mixed hyperlipidemia
CPT/HCPCS: 36415; 70496; 70498; 80053; 80061

== ENCOUNTER → 2020-10-20 | Outpatient (CLI) | payer MEDICARE ==
[~2020-10-20] MED LIST changes: -CATHETER FLUSH 10 ML SYR IV PRN; -HOLD METFORMIN - RECEIVED CONTRAST 20 ML VIAL IV SCH; -IOHEXOL 350 MG/ML 100 ML (OMNIPAQUE 350) VIAL IV ONE; -NS 100 ML (IVPB) BAG IV ONE
== END ==
LOC: CARD 11:18
PROVIDERS: ATTEND Physician Assistant
DX: I34.0 Nonrheumatic mitral (valve) insufficiency (principal); I25.10 Atherosclerotic heart disease of native coronary artery without angina pectoris; I10 Essential (primary) hypertension
CPT/HCPCS: 93306

== ENCOUNTER → 2020-12-14 | Outpatient (CLI) | payer MEDICARE ==
[~2020-12-14] MED LIST changes: +REGADENOSON 0.4 MG/5 ML SYR (LEXISCAN) IV ONE
[2020-12-14] MEDS: CATHETER FLUSH 10 ML SYR IV PRN ×2 (07:38→09:16)
[2020-12-14 09:15] VITALS: BP 164/80
--- NOTE | 2020-12-14 11:51 | Cardiology Stress Test Report ---
Stress Test Report Date of Procedure/Referring: Date of Procedure: Dec 14, 2020 Shruthi Millan Admitting Physician Alfred Britton DO Indications: CAD Baseline Blood Pressure: Blood Pressure Systolic: 164 Blood Pressure Diastolic: 80 Baseline Vitals Vital Signs Date Time Temp Pulse Resp B/P (MAP) Pulse Ox O2 Delivery O2 Flow Rate FiO2 12/14/20 09:15 80 16 164/80 (108) 98 Room Air Baseline EKG: Baseline EKG: NSR Summary After explaining the procedure to the patient, he signed a consent and then brought to the stress nuclear laboratory. Patient received 0.4 mg Lexiscan for stress test, ECG, heart rate and blood pressure were monitored continuously. Resting and stress dose of radio tracer were injected, imaging was acquired and reviewed in short axis, horizontal long axis and vertical long axis views. TID: 1.1 SSS: 3 SDS: 3 EF: 75 1. Patient tolerated Lexiscan well 2. No significant ischemia or infarction on SPECT images 3. Normal left ventricular size, EF 75% PROSPER VENEGAS MD Dec 14, 2020 11:51
== END ==
LOC: CARD 07:30
PROVIDERS: ATTEND Physician Assistant
DX: I25.10 Atherosclerotic heart disease of native coronary artery without angina pectoris (principal); I10 Essential (primary) hypertension
CPT/HCPCS: 78452; 93017; A9502

== ENCOUNTER → 2022-08-31 | Outpatient (CLI) | payer MEDICARE ==
[~2022-08-31] MED LIST changes: +CLOP-31 PO; -CLOP75TA69 PO; -REGADENOSON 0.4 MG/5 ML SYR (LEXISCAN) IV ONE
--- NOTE | 2022-08-31 11:22 | Diagnostic Imaging Report ---
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 FINDINGS: 3 views of the left ankle were obtained. There is no acute fracture or dislocation. No focal osseous lesions are seen. There is asymmetric moderate medial soft tissue swelling. There are no radiopaque foreign bodies. IMPRESSION: 1. Asymmetric medial soft tissue swelling of the left ankle, but no evidence of underlying acute fracture or dislocation Dictated by: Dictated on workstation # [id number]
== END ==
LOC: RAD 10:47
PROVIDERS: ATTEND Family Medicine
DX: M25.572 Pain in left ankle and joints of left foot (principal); M79.89 Other specified soft tissue disorders; Z98.890 Other specified postprocedural states
CPT/HCPCS: 73610

== ENCOUNTER → 2022-10-30 | Outpatient (CLI) | payer MEDICARE | LOC: CARD 12:17 | PROVIDERS: ATTEND Physician Assistant | DX: I10 Essential (primary) hypertension (principal); I25.10 Atherosclerotic heart disease of native coronary artery without angina pectoris | CPT/HCPCS: 93306 ==

== ENCOUNTER → 2022-11-26 | Outpatient (CLI) | payer MEDICARE ==
[~2022-11-26] MED LIST changes: +CATHETER FLUSH 10 ML SYR IVP PRN; +REGADENOSON 0.4 MG/5 ML SYR (LEXISCAN) IV ONE
[2022-11-26 13:09] VITALS: BP 229/96
--- NOTE | 2022-11-27 08:31 | Cardiology Stress Test Report ---
Stress Test Report Date of Procedure/Referring: Date of Procedure: Nov 26, 2022 PCP Alfred Britton DO Admitting Physician Admitting Physician: Attending Physician: Shruthi Camacho Indications: HTN Baseline Heart Rate: 74 Baseline Blood Pressure: Blood Pressure Systolic: 229 Blood Pressure Diastolic: 96 Baseline Vitals Vital Signs Date Time Temp Pulse Resp B/P (MAP) Pulse Ox O2 Delivery O2 Flow Rate FiO2 11/26/22 13:09 74 229/96 (140) 98 Baseline EKG: Baseline EKG: NSR Summary After explaining the procedure to the patient, he signed a consent and then brought to the stress nuclear laboratory. Patient received 0.4 mg Lexiscan for stress test, ECG, heart rate and blood pressure were monitored continuously. Resting and stress dose of radio tracer were injected, imaging was acquired and reviewed in short axis, horizontal long axis and vertical long axis views. TID: 1.01 SSS: 3 SDS: 2 EF: 65 Patient tolerated Lexiscan well Baseline hypertension persisted during test No significant ischemia or infarction noted on SPECT images Normal left ventricular size, ejection fraction 65% Copy Copies To 1: ALFRED BRITTON BASHAR J MD Nov 27, 2022 08:31
== END ==
LOC: CARD 11:06
PROVIDERS: ATTEND Physician Assistant
DX: I10 Essential (primary) hypertension (principal); I25.10 Atherosclerotic heart disease of native coronary artery without angina pectoris
CPT/HCPCS: 78452; 93017; A9502